=== PATIENT | male | born 2000 | race Caucasian/White ===

== ENCOUNTER 2022-04-03 16:51 | Emergency (ER) | payer OTHER, SELFPAY ==
[2022-04-03 17:07] VITALS: BP 121/77; PULSE 80; RESP 16; TEMP 37.3; O2SAT 100
--- NOTE | 2022-04-03 18:17 | ED.URI ---
HPI - URI/Sore Throat General Chief Complaint: Upper Respiratory Infection Stated Complaint: Congestion/Nausea Time Seen by Provider: 04/03/22 18:17 Source: patient and RN notes reviewed Mode of arrival: ambulatory Limitations: no limitations History of Present Illness HPI Narrative: 21-year-old male presenting for complaint of headache, body aches, sinus pressure/congestion, cough, subjective fever/chills. onset 3 days. Denies sick contacts. Denies shortness of breath, wheezing, nausea, vomiting, diarrhea. Took Lorie BLACK elicited complaint: cough Related Data Home Medications Medication Instructions Recorded Confirmed No Home Medications 04/03/22 04/03/22 Allergies Allergy/AdvReac Type Severity Reaction Status Date / Time No Known Allergies Allergy Verified 04/03/22 17:52 Review of Systems Review of Systems: ROS per HPI Exam Narrative: GENERAL: Ill-appearing, nontoxic EYES: PERRLA, conjunctivae clear ENT: Mucous membranes moist. TMs pearly bernstein with dull light reflex bilaterally; no tragal tenderness. Oropharynx erythematous without lesions or exudate, no drooling, no hoarseness, no trismus, uvula midline. CHEST: Clear to auscultation, breath sounds equal. No wheezing, rhonchi, rales, or stridor. No respiratory distress, speaks in full sentences. HEART: Regular rate and rhythm. No murmur heard. SKIN: Warm, dry, no rash. NEURO: Alert and oriented x3. PSYCH: Normal mood and affect Course Course Emergency Course: Patient is aware of diagnosis, understands and agrees to treatment plan. Anticipatory guidance given. Patient agrees to follow-up as directed and is aware of reasons to seek care at the emergency department. Portions of this record may have been created with voice recognition software Level of Care: Express Care Visit Vital Signs Vital signs: Vital Signs Temperature 99.1 F 04/03/22 17:07 Pulse Rate 80 04/03/22 17:07 Respiratory Rate 16 04/03/22 17:07 Blood Pressure 121/77 04/03/22 17:07 Pulse Oximetry 100 04/03/22 17:07 Oxygen Delivery Room Air 04/03/22 17:07 Temperature 99.1 F 04/03/22 17:07 Pulse Rate 80 04/03/22 17:07 Respiratory Rate 16 04/03/22 17:07 Blood Pressure 121/77 04/03/22 17:07 Pulse Oximetry 100 04/03/22 17:07 Oxygen Delivery Room Air 04/03/22 17:07 reviewed MDM - URI/Sore Throat MDM Narrative Medical decision making narrative: Influenza positive. Results reviewed with patient. Advised supportive measures and signs/symptoms to go to the ER. Pt is appropriate for outpt treatment and f/u. Differential Diagnosis Differential diagnosis: Likely upper respiratory infection, sinusitis and viral infection Lab Data Labs: Influenza A Screen Positive Reference Range: Negative Influenza B Screen Negative Reference Range: Negative Discharge Plan Discharge Clinical Impression: Influenza Patient Disposition: Home, Self-Care Condition: Stable Instructions: Influenza (ED) Additional Instructions: Influenza positive You should avoid crowds/work until you are fever free for 24 hours without the use of fever reducing medications, or the symptoms are improved Rest. Drink plenty of fluids. Tylenol 1000mg every 8 hours as needed for pain/fever Recommend Flonase spray and Zyrtec (or Claritin/Marlyn) for sinus pressure/congestion over the counter Cough syrup may cause drowsiness; avoid driving or take it at night time. Follow up with your primary care provider as needed in 1-2 weeks Go to the ER for worsening symptoms or concerns Prescriptions: No Action No Home Medications Follow-up/Referrals: PHYSICIAN,MILLER HEAD [Primary Care Provider] - Stand Alone Forms: Work/School Release IP Time of Disposition: 18:44
== END 2022-04-03 18:48 | disposition home or self-care (01) ==
PROVIDERS: Emergency Provider Nurse Practitioner Family
DX: J10.1 Influenza due to other identified influenza virus with other respiratory manifestations (principal); Z20.822 Contact with and (suspected) exposure to COVID-19
CPT/HCPCS: 87426; 87804; 99213; C9803; G0463

== ENCOUNTER 2022-07-18 15:31 | Emergency (ER) | payer OTHER, SELFPAY ==
[2022-07-18 15:38] VITALS: BP 128/71; PULSE 84; RESP 14; TEMP 37; O2SAT 99
--- NOTE | 2022-07-18 16:14 | ED.NAVMDI ---
HPI - Nausea/Vomiting/Diarrhea General Chief complaint: Nausea/Vomiting/Diarrhea Stated complaint: nausea Source: patient and RN notes reviewed History of Present Illness HPI Narrative: 21-year-old male presents urgent care with complaints of nausea and diarrhea for the last 4 days. Patient states he also has some intermittent abdominal discomfort and ?upset stomach. Denies any fevers, chills, vomiting, sore throat, or ear pain. Some parts of this dictation were generated by voice recognition software and may contain typographical and/or grammatical inaccuracies. Related Data Allergies Allergy/AdvReac Type Severity Reaction Status Date / Time No Known Allergies Allergy Verified 04/03/22 17:52 Review of Systems Review of Systems: CONSTITUTIONAL: Denies fever, chills, or sweats. EYES: Denies visual changes, redness, or discharge. ENT: Denies otalgia and sore throat CARDIOVASCULAR: Denies chest pain, palpitations, or edema. RESPIRATORY: Denies cough or dyspnea. GASTROINTESTINAL: Nausea, diarrhea GENITOURINARY: Denies dysuria or hematuria. SKIN: Denies rash or itching. MUSCULOSKELETAL: Denies back pain, joint pain, or myalgia. NEUROLOGIC: Denies headache, numbness, or weakness. PMFSH Comments At the time of my signature, I reviewed and agree with the nursing past medical, surgical, social, and family history. There is no relevant family history pertinent to the patient complaint. Exam Narrative: GENERAL: This is a well-nourished, well-developed patient, in no apparent distress. HEAD: normocephalic, atraumatic. EYES: PERRL. Sclera clear/white. Vision is grossly intact. EARS: External ears normal, auditory canals clear and without drainage, TMs normal without perforation. Hearing grossly intact. NOSE: External nose normal with no obvious nasal discharge, nares without redness, no rhinorrhea. THROAT: Mucous membranes moist, posterior pharynx clear. NECK: Neck supple, non-tender without lymphadenopathy, masses or thyromegaly. CARDIOVASCULAR: Regular rate . RESPIRATORY: No respiratory distress GASTROINTESTINAL: Abdomen soft, non-tender, nondistended. Bowel sounds are active. No hepato-splenomegaly, or palpable masses. No guarding. SKIN: warm, intact with no suspicious lesions or rash, good texture and turgor. NEURO: awake, alert, and oriented to person, place and time. There were no obvious focal neurologic abnormalities. Course Course Level of Care: Express Care Visit Vital Signs Vital signs: Vital Signs Temperature 98.6 F 07/18/22 15:38 Pulse Rate 84 07/18/22 15:38 Respiratory Rate 14 07/18/22 15:38 Blood Pressure 128/71 07/18/22 15:38 Pulse Oximetry 99 07/18/22 15:38 Oxygen Delivery Room Air 07/18/22 15:38 Temperature 98.6 F 07/18/22 15:38 Pulse Rate 84 07/18/22 15:38 Respiratory Rate 14 07/18/22 15:38 Blood Pressure 128/71 07/18/22 15:38 Pulse Oximetry 99 07/18/22 15:38 Oxygen Delivery Room Air 07/18/22 15:38 Reviewed MDM - Nausea/Vomiting/Diarrhea MDM Narrative Medical decision making narrative: You've been diagnosed with a viral illness that would not require antibiotics at this time. Take the Zofran ODT at home as directed for nausea and get plenty of fluids. You may take Imodium for diarrhea. If you would like to eat food, you should follow the BRAT diet (bananas, rice, applesauce, and toast, or things of the like). If you develop any new or worsening symptoms, you should go to the emergency dept without hesitation. Follow up with your supervisor special effects in 2-5 days. Differential Diagnosis Differential diagnosis: Likely food poisoning, gastroenteritis and dehydration Critical Care Time Critical Care Time Critical Care Time: No Discharge Plan Discharge Clinical Impression: Gastroenteritis Patient Disposition: Home, Self-Care Condition: Stable Instructions: Antibiotic Form, Gastroenteritis (DC) Additional Instructions: You've been diagnosed with a
== END 2022-07-18 16:25 | disposition home or self-care (01) ==
PROVIDERS: Emergency Provider Nurse Practitioner Family; PCP Emergency Medicine
DX: K52.9 Noninfective gastroenteritis and colitis, unspecified (principal)
CPT/HCPCS: 99213; G0463